=== PATIENT | male | born 1990 | race Caucasian/White ===

== ENCOUNTER 2016-09-27 21:52 | Emergency (ER) | payer OTHER ==
--- NOTE | 2016-09-28 00:43 | DIAGNOSTIC IMAGING REPORT ---
PROCEDURE: CTA THORAX WITH CONTRAST INDICATION: Chest pain. History of deep vein thrombosis. TECHNIQUE: 80 ml of Isovue 370 was injected intravenously and axial images were obtained of the entire thorax with 3D sagittal and coronal MIP reconstructions. (Initial injection was suboptimal due to IV malfunction). Study was performed. COMPARISON: Compared to chest x-ray \ (09/28/2016) FINDINGS: Allowing for suboptimal inspiration and mild respiratory motion, pulmonary vessels are normal and there is no evidence of pulmonary embolus. Lungs are clear. Heart and mediastinum are normal. There is a daqsfshh-iy-sobfx amount of ingested material in the stomach. Thorax is normal. IMPRESSION: 1. Negative CT pulmonary arteriogram. No evidence of pulmonary embolus. 2. Findings discussed with Dr. Joaquín Clark. All CT scans at this facility use dose modulation, iterative reconstruction, and/or weight-based dosing when appropriate to reduce radiation dose to as low as reasonably achievable.
--- NOTE | 2016-09-28 00:43 | DIAGNOSTIC IMAGING REPORT ---
PROCEDURE: CTA THORAX WITH CONTRAST INDICATION: Chest pain. History of deep vein thrombosis. TECHNIQUE: 80 ml of Isovue 370 was injected intravenously and axial images were obtained of the entire thorax with 3D sagittal and coronal MIP reconstructions. (Initial injection was suboptimal due to IV malfunction). Study was performed. COMPARISON: Compared to chest x-ray \ (09/28/2016) FINDINGS: Allowing for suboptimal inspiration and mild respiratory motion, pulmonary vessels are normal and there is no evidence of pulmonary embolus. Lungs are clear. Heart and mediastinum are normal. There is a gjwknqoq-wm-lucko amount of ingested material in the stomach. Thorax is normal. IMPRESSION: 1. Negative CT pulmonary arteriogram. No evidence of pulmonary embolus. 2. Findings discussed with Dr. Joaquín Clark. All CT scans at this facility use dose modulation, iterative reconstruction, and/or weight-based dosing when appropriate to reduce radiation dose to as low as reasonably achievable.
--- NOTE | 2016-09-28 01:03 | ED NURSING NOTES ---
Clinical Report - Nurses [facility] [place] [address] 09/27/2016 21:54 Patient: ARNOLD GAINES TRIAGE Triage time 21:59. Acuity: LEVEL 2. Chief Complaint: CHEST PAIN (anxiety and shortness of breath). Alert. --22:08 Nishant Mcwilliams R.N. 21:59 09/27/16. BP: 126/59. HR: 94. RR: 40 (regular and rapid). O2 saturation: 99% on room air. Temp: 97.3 F (oral). Pain level now: 01/08. --22:08 Nishant Mcwilliams R.N. Weight: 126 kg stated. Height/Length: 71 inches Per Patient. BMI: 38.8. --22:09 Nishant Mcwilliams R.N. Medications Unable to Obtain. --22:00 Nishant Mcwilliams R.N. Allergies No Known Drug Allergy. --22:00 Nishant Mcwilliams R.N. History This started yesterday. PAST MEDICAL HX: Hypertension. SOCIAL HX: Heavy tobacco smoker (cigarette)- 1 pack per day. Occasional alcohol use. History of drug use: marijuana. Is a recovering addict. ( Denies HI/SI). ABUSE ASSESSMENT: No report of abuse. SELF HARM ASSESSMENT: A self harm assessment was performed. The patient answered "no" to the question "Do you have thoughts of harming or killing yourself?" and "Are you here because you tried to hurt yourself?". FALL RISK ASSESSMENT: Fall risk assessment completed. No fall risk identified. NUTRITIONAL RISK ASSESSMENT: The nutritional risk assessment revealed no deficiencies. FUNCTIONAL ASSESSMENT: Functional assessment: no impairments noted. LEARNING NEEDS ASSESSMENT: The learning needs assessment revealed no barriers. SKIN INTEGRITY ASSESSMENT: Skin integrity risk assessment completed. No skin integrity risk identified. --22:08 Nishant Mcwilliams R.N. PROBLEMS: Anxiety Reaction. Hypertension. --22:02 Nishant Mcwilliams R.N. DVT - Deep Venous Thrombosis. Lung Nodule. --22:06 Nishant Mcwilliams R.N. ADDITIONAL SURGERIES: Naloxone Implant. --22:02 Nishant Mcwilliams R.N. Knee Surgery. --22:06 Nishant Mcwilliams R.N. Interventions ID and allergy band on patient. To treatment room. --22:08 Nishant Mcwilliams R.N. PHYSICAL ASSESSMENT Ambulatory to room. GENERAL / NEURO / PSYCH: Alert. Oriented X 4. Appears anxious. HEENT: Mucous membranes are pink. RESPIRATORY: Mild respiratory distress. The patient can speak in full sentences. Breath sounds within normal limits. CVS: Normal sinus rhythm noted. Capillary refill less than 2 seconds. GI / : Abdomen soft. Bowel sounds within normal limits. SKIN: Skin is warm and dry. --22:09 Nishant Mcwilliams R.N. ( NSR on patient monitor). --22:20 Nishant Mcwilliams R.N. ( ER doctor with patient.). --23:27 Nishant Mcwilliams R.N. ( Patient's IV infiltrated in CT scan. The site is currently not swollen, the IV was removed by the roofing technician. The patient has no bleeding or drainage or discoloration at the site of the IV currently. gauze and 4x4 currently applied.). --23:29 Nishant Mcwilliams R.N. 00:09 09/28/16. BP: 135/76. HR: 90. RR: 24. O2 saturation: 99% on room air. --00:09 Nishant Mcwilliams R.N. NURSING PROGRESS NOTES air sampling and monitoring, pulse oximeter and NIBP monitor placed on patient. Patient gowned. Head of bed elevated. Reassurance given. Two patient identifiers checked. Call light placed in reach. Side rails up x 1. Bed placed in lowest position. Brakes of bed on. Patient ready for evaluation- chart flagged. Patient waiting for evaluation. --22:10 Nishant Mcwilliams R.N. ( Patient states having surgery on 09-16-16 to implant a "Naloxone impant"). --22:11 Nishant Mcwilliams R.N. 22:08. EKG was performed by a tech and shown to the ED physician. --22:13 McQuoid, Brenda, ER Tech1 Telemetry strip posted to chart. --22:14 McQuoid, Brenda, ER Tech1 <<STRICKEN ENTRY-- 22:50 09/27/2016 Site #1 started via IV in the right antecubital space with an 20g angiocath, with aseptic technique and good blood return; three attempts. Blood drawn: rainbow set. Labeled in the presence of the patient and sent to the lab. Saline lock flushed with 10 mL saline. --23:00 Nishant Mcwilliams R.N. --END STRIKE>> Correction. --23:02 Nishant Mcwilliams R.N. ( I notified CT that the patient's IV was in place.). --23:00 Nishant Mcwilliams R.N. 22:50 09/27/2016 Site #1 started via IV in the right antecubital space with an 20g angiocath, with aseptic technique and good blood return; three attempts. Blood drawn: rainbow set. Labeled in the presence of the patient and sent to the lab. Saline lock flushed with 10 mL saline (Started by Azar Nunez RN). --23:02 Nishant Mcwilliams R.N. ( Patient requests anti-anxiety medication. I notified the doctor.). --23:04 Nishant Mcwilliams R.N. 23:08 09/27/2016 Ativan (LORazepam) IVP 1 mg given over 1 minute(s) via site #1. Allergies verified, confirmed 5 rights and sedative warning given to the patient. IV patency established. IV site checked: no pain, redness, or swelling. IV flushed thoroughly pre- and post-medication administration. --23:09 Azar Somers R.N. ( Patient in CT). --23:12 Nishant Mcwilliams R.N. 23:16 09/27/2016 Site #1 removed. Catheter intact. Bandage applied (Patient came back from OR - tech informed me that IV site blew during test shot and was unable to complete CT scan). --23:55 Azar Somers R.N. 23:29 09/27/2016 Hydroxyzine (HydrOXYzine HCl) PO Capsules 50 mg given. Allergies verified, confirmed 5 rights and sedative warning given to the patient. --23:29 Nishant Mcwilliams R.N. ( Dr. Yanes is currently attempting to gain IV access by ultrasound.). --23:35 Nishant Mcwilliams R.N. 23:46 09/27/2016 Site #2 started via IV in the right upper arm with an 20g angiocath, with aseptic technique and good blood return; one attempt. Saline lock flushed with 10 mL saline (IV started by Dr. Clark using ultrasound). --23:56 Azar Somers R.N. 00:05 09/28/2016 Toradol IVP 30 mg given over 1 minute(s) via site #2. Allergies verified and confirmed 5 rights. IV patency established. IV site checked: no pain, redness, or swelling. IV flushed thoroughly pre- and post-medication administration. IVP given by RN. --00:07 Nishant Mcwilliams R.N. 00:07 09/28/2016 Started bag #1 1000 mL IV Fluids IV NS (Saline); at 1000 mL/hr over 1 hour(s) via site #2. Allergies verified and confirmed 5 rights. IV patency established. IV site checked: no pain, redness, or swelling. IV flushed thoroughly pre- and post-medication administration. Completed per protocol. --00:07 Nishant Mcwilliams R.N. ( I notified the roofing technician that the patient is ready for CT). --00:08 Nishant Mcwilliams R.N. 00:11. Patient walked to CT with tech. --00:11 McQuoid, Brenda, ER Tech1 ( Patient in CT). --00:18 Nishant Mcwilliams R.N. ( The physician (Joaquín) states that the patient may eat.). --00:36 Nishant Mcwilliams R.N. 01:09 09/28/2016 Toradol IVP 30 mg given over 2 minute(s) via site #2. Allergies verified and confirmed 5 rights. IV patency established. IV site checked: no pain, redness, or swelling. IV flushed thoroughly pre- and post-medication administration. IVP given by RN. --01:14 Nishant Mcwilliams R.N. 01:13 09/28/2016 Site #2 removed upon discharge. Manual pressure and bandage applied. --01:15 Nishant Mcwilliams R.N. 01:13 09/28/2016 IV Fluids IV NS Discontinued: discontinued. Total amount infused: 500 mL. IV patency established. IV site checked: no pain, redness, or swelling. IV flushed thoroughly. --01:15 Nishant Mcwilliams R.N. DISPOSITION / DISCHARGE Departure time: 01:15. Condition at departure: stable. No learning barriers present. Discharge instructions provided and reviewed with the patient and parent. Reviewed warnings. Reviewed medication(s) side effects, precautions, dosing and course information. Prescription(s) given to the patient. Treatments reviewed. Reviewed referrals. Patient and parent verbalized understanding. Written instructions provided in Maori. The patient was discharged home and accompanied by parent. He left the Emergency Department ambulatory and via private vehicle. Parent driving. --01:16 Nishant Mcwilliams R.N. 01:13 09/28/16. BP: 141/83. HR: 93. RR: 20 (regular and unlabored). O2 saturation: 100%. Chin-Steele pain scale: 2/10. --01:16 Nishant Mcwilliams R.N. Locked/Released at 09/28/2016 1:16 by Nishant Mcwilliams R.N.
--- NOTE | 2016-09-28 01:03 | ED NURSING NOTES ---
Clinical Report - Nurses [facility] [place] [address] 09/27/2016 21:54 Patient: ARNOLD GAINES TRIAGE Triage time 21:59. Acuity: LEVEL 2. Chief Complaint: CHEST PAIN (anxiety and shortness of breath). Alert. --22:08 Nishant Mcwilliams R.N. 21:59 09/27/16. BP: 126/59. HR: 94. RR: 40 (regular and rapid). O2 saturation: 99% on room air. Temp: 97.3 F (oral). Pain level now: 01/08. --22:08 Nishant Mcwilliams R.N. Weight: 126 kg stated. Height/Length: 71 inches Per Patient. BMI: 38.8. --22:09 Nishant Mcwilliams R.N. Medications Unable to Obtain. --22:00 Nishant Mcwilliams R.N. Allergies No Known Drug Allergy. --22:00 Nishant Mcwilliams R.N. History This started yesterday. PAST MEDICAL HX: Hypertension. SOCIAL HX: Heavy tobacco smoker (cigarette)- 1 pack per day. Occasional alcohol use. History of drug use: marijuana. Is a recovering addict. ( Denies HI/SI). ABUSE ASSESSMENT: No report of abuse. SELF HARM ASSESSMENT: A self harm assessment was performed. The patient answered "no" to the question "Do you have thoughts of harming or killing yourself?" and "Are you here because you tried to hurt yourself?". FALL RISK ASSESSMENT: Fall risk assessment completed. No fall risk identified. NUTRITIONAL RISK ASSESSMENT: The nutritional risk assessment revealed no deficiencies. FUNCTIONAL ASSESSMENT: Functional assessment: no impairments noted. LEARNING NEEDS ASSESSMENT: The learning needs assessment revealed no barriers. SKIN INTEGRITY ASSESSMENT: Skin integrity risk assessment completed. No skin integrity risk identified. --22:08 Nishant Mcwilliams R.N. PROBLEMS: Anxiety Reaction. Hypertension. --22:02 Nishant Mcwilliams R.N. DVT - Deep Venous Thrombosis. Lung Nodule. --22:06 Nishatn Mcwilliams R.N. ADDITIONAL SURGERIES: Naloxone Implant. --22:02 Nishant Mcwilliams R.N. Knee Surgery. --22:06 Nishant Mcwilliams R.N. Interventions ID and allergy band on patient. To treatment room. --22:08 Nishant Mcwilliams R.N. PHYSICAL ASSESSMENT Ambulatory to room. GENERAL / NEURO / PSYCH: Alert. Oriented X 4. Appears anxious. HEENT: Mucous membranes are pink. RESPIRATORY: Mild respiratory distress. The patient can speak in full sentences. Breath sounds within normal limits. CVS: Normal sinus rhythm noted. Capillary refill less than 2 seconds. GI / : Abdomen soft. Bowel sounds within normal limits. SKIN: Skin is warm and dry. --22:09 Nishant Mcwilliams R.N. ( NSR on color television console monitor). --22:20 Nishant Mcwilliams R.N. ( ER doctor with patient.). --23:27 Nishant Mcwilliams R.N. ( Patient's IV infiltrated in CT scan. The site is currently not swollen, the IV was removed by the technical aid. The patient has no bleeding or drainage or discoloration at the site of the IV currently. gauze and 4x4 currently applied.). --23:29 Nishant Mcwilliams R.N. 00:09 09/28/16. BP: 135/76. HR: 90. RR: 24. O2 saturation: 99% on room air. --00:09 Nishant Mcwilliams R.N. NURSING PROGRESS NOTES surveillance monitor, pulse oximeter and NIBP monitor placed on patient. Patient gowned. Head of bed elevated. Reassurance given. Two patient identifiers checked. Call light placed in reach. Side rails up x 1. Bed placed in lowest position. Brakes of bed on. Patient ready for evaluation- chart flagged. Patient waiting for evaluation. --22:10 Nishant Mcwilliams R.N. ( Patient states having surgery on 09-16-16 to implant a "Naloxone impant"). --22:11 Nishant Mcwilliams R.N. 22:08. EKG was performed by a tech and shown to the ED physician. --22:13 McQuoid, Brenda, ER Tech1 Telemetry strip posted to chart. --22:14 McQuoid, Brenda, ER Tech1 <<STRICKEN ENTRY-- 22:50 09/27/2016 Site #1 started via IV in the right antecubital space with an 20g angiocath, with aseptic technique and good blood return; three attempts. Blood drawn: rainbow set. Labeled in the presence of the patient and sent to the lab. Saline lock flushed with 10 mL saline. --23:00 Nishant Mcwilliams R.N. --END STRIKE>> Correction. --23:02 Nishant Mcwilliams R.N. ( I notified CT that the patient's IV was in place.). --23:00 Nishant Mcwilliams R.N. 22:50 09/27/2016 Site #1 started via IV in the right antecubital space with an 20g angiocath, with aseptic technique and good blood return; three attempts. Blood drawn: rainbow set. Labeled in the presence of the patient and sent to the lab. Saline lock flushed with 10 mL saline (Started by Azar Nunez RN). --23:02 Nishant Mcwilliams R.N. ( Patient requests anti-anxiety medication. I notified the doctor.). --23:04 Nishant Mcwilliams R.N. 23:08 09/27/2016 Ativan (LORazepam) IVP 1 mg given over 1 minute(s) via site #1. Allergies verified, confirmed 5 rights and sedative warning given to the patient. IV patency established. IV site checked: no pain, redness, or swelling. IV flushed thoroughly pre- and post-medication administration. --23:09 Azar Somers R.N. ( Patient in CT). --23:12 Nishant Mcwilliams R.N. 23:16 09/27/2016 Site #1 removed. Catheter intact. Bandage applied (Patient came back from [place] - tech informed me that IV site blew during test shot and was unable to complete CT scan). --23:55 Azar Somers R.N. 23:29 09/27/2016 Hydroxyzine (HydrOXYzine HCl) PO Capsules 50 mg given. Allergies verified, confirmed 5 rights and sedative warning given to the patient. --23:29 Nishant Mcwilliams R.N. ( Dr. Yanes is currently attempting to gain IV access by ultrasound.). --23:35 Nishant Mcwilliams R.N. 23:46 09/27/2016 Site #2 started via IV in the right upper arm with an 20g angiocath, with aseptic technique and good blood return; one attempt. Saline lock flushed with 10 mL saline (IV started by Dr. Clark using ultrasound). --23:56 Azar Somers R.N. 00:05 09/28/2016 Toradol IVP 30 mg given over 1 minute(s) via site #2. Allergies verified and confirmed 5 rights. IV patency established. IV site checked: no pain, redness, or swelling. IV flushed thoroughly pre- and post-medication administration. IVP given by RN. --00:07 Nishant Mcwilliams R.N. 00:07 09/28/2016 Started bag #1 1000 mL IV Fluids IV NS (Saline); at 1000 mL/hr over 1 hour(s) via site #2. Allergies verified and confirmed 5 rights. IV patency established. IV site checked: no pain, redness, or swelling. IV flushed thoroughly pre- and post-medication administration. Completed per protocol. --00:07 Nishant Mcwilliams R.N. ( I notified the technical aid that the patient is ready for CT). --00:08 Nishant Mcwilliams R.N. 00:11. Patient walked to CT with tech. --00:11 McQuoid, Brenda, ER Tech1 ( Patient in CT). --00:18 Nishant Mcwilliams R.N. ( The physician (Joaquín) states that the patient may eat.). --00:36 Nishant Mcwilliams R.N. 01:09 09/28/2016 Toradol IVP 30 mg given over 2 minute(s) via site #2. Allergies verified and confirmed 5 rights. IV patency established. IV site checked: no pain, redness, or swelling. IV flushed thoroughly pre- and post-medication administration. IVP given by RN. --01:14 Nishant Mcwilliams R.N. 01:13 09/28/2016 Site #2 removed upon discharge. Manual pressure and bandage applied. --01:15 Nishant Mcwilliams R.N. 01:13 09/28/2016 IV Fluids IV NS Discontinued: discontinued. Total amount infused: 500 mL. IV patency established. IV site checked: no pain, redness, or swelling. IV flushed thoroughly. --01:15 Nishant Mcwilliams R.N. DISPOSITION / DISCHARGE Departure time: 01:15. Condition at departure: stable. No learning barriers present. Discharge instructions provided and reviewed with the patient and parent. Reviewed warnings. Reviewed medication(s) side effects, precautions, dosing and course information. Prescription(s) given to the patient. Treatments reviewed. Reviewed referrals. Patient and parent verbalized understanding. Written instructions provided in Amharic. The patient was discharged home and accompanied by parent. He left the Emergency Department ambulatory and via private vehicle. Parent driving. --01:16 Nishant Mcwilliams R.N. 01:13 09/28/16. BP: 141/83. HR: 93. RR: 20 (regular and unlabored). O2 saturation: 100%. Chin-Steele pain scale: 2/10. --01:16 Nishant Mcwilliams R.N. Locked/Released at 09/28/2016 1:16 by Nishant Mcwilliams R.N.
--- NOTE | 2016-09-28 01:03 | ED ORDER SUMMARY ---
..... Patient: ARNOLD GAINES OrderSheet [facility] VisitID: [id number] [place] [address] 25y, M Registration Date/Time: 09/27/2016 ORDER SHEET Weight: 126.0 kg (stated) Allergies: No Known Drug Allergy GENERAL ORDERS: EKG - ER Stat (22:15 09/27/2016 AMcQuoid ER Tech1 per protocol) (22:15 AMcQuoid ER Tech1) Blast Furnace Supervisor (Continuous) (CP) (22:09/27/2016 Isaias Wright) (22:58 DDavis R.N.) CTA Thorax w Cont (No) (N/A) Urgent (:09/27/2016 Isaias Wright) (Ack 22:37 CHagerty ER Automatic Lathe Operator) (0:21 RFay) CBC w Diff Urgent (:09/27/2016 Isaias Wright) (Ack 22:37 CHagerty ER Automatic Lathe Operator) (22:59 DDavis R.N.) CMP Urgent (22:09/27/2016 Isaias Wright) (Ack 22:37 Nimaerty ER Automatic Lathe Operator) (22:59 DDavis R.N.) Troponin-I Urgent (22:09/27/2016 Isaias Wright) (Ack 22:37 CHagerty ER Automatic Lathe Operator) (22:59 DDavis R.N.) PT with INR Urgent (22:09/27/2016 Isaias Wright) (Ack 22:37 CHagerty ER Automatic Lathe Operator) (22:59 DDavis R.N.) Pulse oximeter (22:09/27/2016 Isaias Wright) (22:58 DDavis R.N.) MEDICATION ORDERS: HydrOXYzine PO 50 mg (NOW) (:09/27/2016 Isaias Wright) (23:29 DDavis R.N.) IV FLUIDS: IV NS : initial bolus 1000 mL (1000 mL/hr), then none - for X1 (NOW) (22:09/27/2016 Isaias Wright) (Ack 23:23 DDavis R.N.) (0:07 DDavis R.N.) Toradol IV 30 mg (NOW) (22:29 09/27/2016 Isaias Wright) (Ack 23:23 DDavis R.N.) (0:07 DDavis R.N.) Ativan IV 1 mg (HIGH ALERT MEDICATION, NOW) (23:05 09/27/2016 Isaias Wright) (23:09 JQuivey R.N.) Toradol IV 30 mg (NOW) (01:02 09/28/2016 Isaias Wright) (Ack 1:02 DDavis R.N.) (1:14 DDavis R.N.) ORDER SHEET NOTES: [Electronically signed by Nishant Mcwilliams R.N. (01:16 09/28/2016)] [Electronically signed by Joaquín Clark Dr. (07:12 09/28/2016)] [Electronically locked/signed by Nishant Mcwilliams R.N. (01:16 09/28/2016)]
--- NOTE | 2016-09-28 01:03 | ED ORDER SUMMARY ---
..... Patient: ARNOLD GAINES OrderSheet [facility] VisitID: [id number] [place] [address] 25y, M Registration Date/Time: 09/27/2016 ORDER SHEET Weight: 126.0 kg (stated) Allergies: No Known Drug Allergy GENERAL ORDERS: EKG - ER Stat (22:15 09/27/2016 AMcQuoid ER Tech1 per protocol) (22:15 AMcQuoid ER Tech1) Director Of Dance (Continuous) (CP) (22:09/27/2016 Isaias Wright) (22:58 DDavis R.N.) CTA Thorax w Cont (No) (N/A) Urgent (:09/27/2016 Isaias Wright) (Ack 22:37 CHagerty ER Mergers And Acquisitions Consultant) (0:21 RFay) CBC w Diff Urgent (:09/27/2016 Isaias Wright) (Ack 22:37 CHagerty ER Mergers And Acquisitions Consultant) (22:59 DDavis R.N.) CMP Urgent (22:09/27/2016 Isaias Wright) (Ack 22:37 Nimaerty ER Mergers And Acquisitions Consultant) (22:59 DDavis R.N.) Troponin-I Urgent (22:09/27/2016 Isaias Wright) (Ack 22:37 CHagerty ER Mergers And Acquisitions Consultant) (22:59 DDavis R.N.) PT with INR Urgent (22:09/27/2016 Isaias Wright) (Ack 22:37 CHagerty ER Mergers And Acquisitions Consultant) (22:59 DDavis R.N.) Pulse oximeter (22:09/27/2016 Isaias Wright) (22:58 DDavis R.N.) MEDICATION ORDERS: HydrOXYzine PO 50 mg (NOW) (:09/27/2016 Isaias Wright) (23:29 DDavis R.N.) IV FLUIDS: IV NS : initial bolus 1000 mL (1000 mL/hr), then none - for X1 (NOW) (22:09/27/2016 Isaias Wright) (Ack 23:23 DDavis R.N.) (0:07 DDavis R.N.) Toradol IV 30 mg (NOW) (22:29 09/27/2016 Isaias Wright) (Ack 23:23 DDavis R.N.) (0:07 DDavis R.N.) Ativan IV 1 mg (HIGH ALERT MEDICATION, NOW) (23:05 09/27/2016 Isaias Wright) (23:09 JQuivey R.N.) Toradol IV 30 mg (NOW) (01:02 09/28/2016 Isaias Wright) (Ack 1:02 DDavis R.N.) (1:14 DDavis R.N.) ORDER SHEET NOTES: [Electronically signed by Nishant Mcwilliams R.N. (01:16 09/28/2016)] [Electronically signed by Joaquín Clark Dr. (07:12 09/28/2016)] [Electronically locked/signed by Nishant Mcwilliams R.N. (01:16 09/28/2016)]
--- NOTE | 2016-09-28 01:03 | ED CLINICAL REPORT ---
Clinical Report - Physicians/Mid Levels [facility] [address] [place] [address] 09/27/2016 21:54 Patient: ARNOLD GAINES Time Seen: 2215. Arrived- By private vehicle. Historian- patient. HISTORY OF PRESENT ILLNESS Chief Complaint: CHEST PAIN. It is described as pressure and it is described as located in the right chest area. No radiation. This started yesterday and is still present (unchanged). It was abrupt in onset and has been constant but is not gone now. Onset during rest. At its maximum, severity described as moderate. When seen in the E.D., severity described as moderate. Modifying factors- (reports it is non-exertional). Not worsened by anything. Not relieved by anything. No nausea, vomiting, difficulty breathing or diaphoresis. No additional chest pain. Similar symptoms previously: None. Recent medical care: The patient was seen recently by a health care provider (implanted "narcan device"). REVIEW OF SYSTEMS No fever or skin rash. All systems otherwise negative, except as recorded above. PAST HISTORY See nurses notes. Risk factors for DVT/pulmonary embolism- prior history of DVT. SOCIAL HISTORY Smoker- current status unknown. 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 No alcohol use. No recent travel. Is a local resident. FAMILY HISTORY Negative. ADDITIONAL NOTES The nursing notes have been reviewed. PHYSICAL EXAM Vital Signs: 09/27/2016 21:59 BP: 126/59. HR: 94. RR: 40. O2 saturation: 99%. Temp: 97.3 F. Pain level now: 8/10. Blood pressure normal. Oxygen saturation normal. Appearance: Alert. Oriented X3. No acute distress. Eyes: Pupils equal, round and reactive to light. Eyes normal inspection. ENT: Ears normal. Nose normal. Pharynx normal. Neck: Normal inspection. Neck supple. CVS: Normal heart rate and rhythm. Heart sounds normal. Pulses normal. Respiratory: No respiratory distress. Breath sounds normal. Chest nontender. Abdomen: Soft and nontender. Bowel sounds normal. No organomegaly. No mass. (ecchymosis to the left lower anterior abdomen consistent with recent surgery). Skin: Skin warm and dry. Normal skin color. No rash. Normal skin turgor. Extremities: Extremities exhibit normal ROM. No lower extremity edema. Neuro: Oriented X 3. No motor deficit. No sensory deficit. LABS, X-RAYS, AND EKG EKG: No acute process. No acute ischemia. Normal EKG. Normal sinus rhythm. Rate: 92. Normal P waves. Normal SIGRID. Normal QRS complex. Normal axis. Normal ST and T waves, QT and QTc. The study has been interpreted contemporaneously. The study has been independently viewed by me. The EKG appears to be a good tracing. Chest CT: (PROCEDURE: CTA THORAX WITH CONTRAST INDICATION: Chest pain. History of deep vein thrombosis. TECHNIQUE: 80 ml of Isovue 370 was injected intravenously and axial images were obtained of the entire thorax with 3D sagittal and coronal MIP reconstructions. (Initial injection was suboptimal due to IV malfunction). Study was performed. COMPARISON: Compared to chest x-ray \\ (09/28/2016) FINDINGS: Allowing for suboptimal inspiration and mild respiratory motion, pulmonary vessels are normal and there is no evidence of pulmonary embolus. Lungs are clear. Heart and mediastinum are normal. There is a [id number] amount of ingested material in the stomach. Thorax is normal. IMPRESSION: 1. Negative CT pulmonary arteriogram. No evidence of pulmonary embolus.). Chest CT performed with contrast. The study was independently viewed by me and interpreted by the radiologist. The study was discussed with the radiologist (via phone and pacs). Laboratory Tests: CBC w Diff: (IVAN: 09/27/2016 22:35) ( MsgRcvd 09/27/2016 22:55) Final results Test Result Flag Units (Reference) WHITE BLOOD COUNT 11.5 K/uL (4.5-11.5) RED BLOOD COUNT 5.03 M/uL (4.50-5.90) HEMOGLOBIN 13.8 gm/dL (13.5-17.5) HEMATOCRIT 41.9 % (41.0-53.0) MEAN CELL VOLUME 83 fL (80-100) MEAN CORPUSCULAR HGB 28 pg (26-34) MEAN CORPUSCULAR HGB CONC 33 g/dL (31-37) RED CELL DISTRIBUTION WIDTH 16.6 H % (11.6-14.8) PLATELET COUNT 283 K/uL (150-400) LYMPH % 44.4 H % (25-40) MONO % 11.6 % (3-14) GRANULOCYTE % 44.0 PT with INR: (IVAN: 09/27/2016 22:35) ( MsgRcvd 09/27/2016 23:05) Final results Test Result Flag Units (Reference) INR 0.9 (0.8-1.2) Low Intensity Therapy: INR 1.5-2.0 PT range 18.5-23.1Mod.Intensity Therapy: INR 2.0-3.0 PT range 23.1-31.5High Intensity Therapy: INR 2.5-3.5 PT range 27.4-35.5High Intensity Therapy 2: INR 3.0-4.0 PT range 31.5-39.3 CMP: (IVAN: 09/27/2016 22:35) ( MsgRcvd 09/27/2016 23:09) Final results Test Result Flag Units (Reference) GLUCOSE 115 H mg/dL (70-110) BUN 13 mg/dL (7-18) CREATININE 0.9 mg/dL (0.6-1.3) Estimated GFR >60 mL/min Estimated GFR- >60 mL/min Note: Persistent reduction over 3 months in eGFR<60 mL/min/1.73 m2 defines CKD. Patients with eGFR values>=60 mL/min/1.73 m2 may also have CKD if evidence ofpersistent proteinuria. Additional information may be foundat www.kidney.org. SODIUM 147 H mmol/L (136-145) POTASSIUM 4.0 mmol/L (3.5-5.1) CHLORIDE 109 H mmol/L (98-107) CARBON DIOXIDE 25 mmol/L (21-32) CALCIUM 9.5 mg/dL (8.5-10.1) TOTAL PROTEIN 8.0 g/dL (6.4-8.2) ALBUMIN 3.7 g/dL (3.3-5.0) BILIRUBIN, TOTAL 0.1 mg/dL (0.0-1.0) ALKALINE PHOSPHATASE 118 H U/L (46-116) AST (SGOT) 17 U/L (15-37) ALT (SGPT) 56 U/L (12-78) TROPONIN I <0.05 L ng/mL (0.00-1.5) TROPONIN REFERENCE RANGE:<0.1 NEGATIVE0.1-1.5 INDETERMINANT>1.5 POSITIVE . PROGRESS AND PROCEDURES Course of Care: the patient is a pleasant 25-year-old male with past medical history significant for substance abuse presented for evaluation of chest pain. At this time differential diagnosis includes pulmonary embolism with patient having a history of DVT as well as acute myocardial infarction, pneumonia, pneumothorax. Had long discussion with the patient and mother in regards to patient's presentation here in the emergency department had been recently evaluated for chest pain on the of this month. because of the radiation exposure risk, the patient in the mother were concerned about the CT scan however expressed my concern for his risk of pulmonary embolism given the history of DVT. They're currently agreeable to the treatment plan. Medications have been ordered and workup from [facility] has been requested from the patient's last visit there. The patient's workup was noted for the findings above. Laboratory studies are unremarkable. Troponin is negative. EKG is unremarkable. CT scan of the patient's chest did not show any signs of acute pulmonary embolism. Because of the patient's negative workup. Emergency department, do not feel patient needs to be admitted to the hospital require further emergency department workup/evaluation. Pain is significant improved while here in the emergency department. Patient continues to be nontoxic. Repeat examination is otherwise benign. Discussed with the patient is workup here in the emergency department including diagnosis, home care, follow-up, and return precautions. All questions have been answered. The patient expressed understanding of these instructions and was agreeable to them. Encouraged patient to continue with the detox process and Praised him for his efforts in doing so. The patient that he'll be long and hard process however the records at the end of the road are significant. Disposition: Discharged. Condition: good. CLINICAL IMPRESSION 09/28/2016 00:09 BP: 135/76. HR: 90. RR: 24. O2 saturation: 99%. 09/27/2016 21:59 BP: 126/59. HR: 94. RR: 40. O2 saturation: 99%. Temp: 97.3 F. Pain level now: 01/08. Blood pressure normal. Oxygen saturation normal. Atypical chest pain .12 lead EKG performed. (acute bilateral anterior). INSTRUCTIONS Warnings: GENERAL WARNINGS: Return or contact your physician immediately if your condition worsens or changes unexpectedly, if not improving as expected, or if other problems arise. SPECIFICALLY, return if you develop chest, neck, jaw, shoulder, arm, or back pain, difficulty breathing, a fluttering sensation in your chest, lightheadedness, fainting, excessive fatigue, or sudden sweating. Your Current Medications: CONTINUE TAKING THE FOLLOWING MEDICATIONS: Unable to Obtain*. Prescription Medications: Motrin 600 mg tablets: take 1 tablet orally every 6 hours as needed for pain, stiffness or swelling. Dispense thirty (30). No refill. Substitution is permissible. (take with food) Follow-up: Return to the emergency department as needed. Follow up with your doctor in three days. Reason for referral: recheck today's concerns. Summary of care provided to patient and family via paper. Screening today revealed the patient's blood pressure to be in the normal range. The patient should follow up with a primary care provider for blood pressure management. Understanding of the discharge instructions verbalized by patient. Discharge instructions reviewed (mother). (Electronically signed by Joaquín Clark Dr. 09/28/2016 7:12)
--- NOTE | 2016-09-28 07:12 | ED MAR SUMMARY ---
..... Medication Administration Record [facility] [address] [place] [address] Patient: ARNOLD GAINES Visit ID: [id number] 25y, M Weight: 126.0 kg Height/Length: 71 in BMI: 38.8 ALLERGIES: No Known Drug Allergy Given 23:08 09/27/2016 Azar Somers R.N. Medication Administered: ATIVAN [IVP] (LORAZEPAM), Dose: 1 mg IVP over 1 minute(s), Site: #1 right AC. Medication Ordered: Ativan IV 1 mg (HIGH ALERT MEDICATION, NOW). Given 23:09/27/2016 Nishant Mcwilliams R.N. Medication Administered: HYDROXYZINE [PO] (HYDROXYZINE HCL), Dose: 50 mg Capsules PO. Medication Ordered: HydrOXYzine PO 50 mg (NOW). Given 00:05 09/28/2016 Nishant Mcwilliams R.N. Medication Administered: TORADOL [IVP], Dose: 30 mg IVP over 1 minute(s), Site: #2 right upper arm. Medication Ordered: Toradol IV 30 mg (NOW). Start 00:07 09/28/2016 Nishant Mcwliliams R.N., Stop 01:13 09/28/2016 Nishant Mcwilliams R.N. Medication Administered: IV NS (SALINE), Dose: IV Fluids over 1 hour(s), Rate: 1000 mL/hr, Dispensed: 1000 mL bag, Site: #2 right upper arm. Medication Ordered: IV NS : initial bolus 1000 mL (1000 mL/hr), then none - for X1 (NOW). Given 01:09 09/28/2016 Nishant Mcwilliams R.N. Medication Administered: TORADOL [IVP], Dose: 30 mg IVP over 2 minute(s), Site: #2 right upper arm. Medication Ordered: Toradol IV 30 mg (NOW).
--- NOTE | 2016-09-28 07:12 | ED DISCHARGE INSTRUCTIONS ---
Patient: ARNOLD GAINES General Instructions [facility] VisitID: [id number] [place] [address] 25y, M Registration Date/Time: 09/27/2016 09/28/2016 00:09 BP: 135/76. HR: 90. RR: 24. O2 saturation: 99%. 09/27/2016 21:59 BP: 126/59. HR: 94. RR: 40. O2 saturation: 99%. Temp: 97.3 F. Pain level now: 810. Blood pressure normal. Oxygen saturation normal. Atypical chest pain .12 lead EKG performed. (acute bilateral anterior). INSTRUCTIONS Warnings: GENERAL WARNINGS: Return or contact your physician immediately if your condition worsens or changes unexpectedly, if not improving as expected, or if other problems arise. SPECIFICALLY, return if you develop chest, neck, jaw, shoulder, arm, or back pain, difficulty breathing, a fluttering sensation in your chest, lightheadedness, fainting, excessive fatigue, or sudden sweating. Your Current Medications: CONTINUE TAKING THE FOLLOWING MEDICATIONS: Unable to Obtain*. Prescription Medications: Motrin 600 mg tablets: take 1 tablet orally every 6 hours as needed for pain, stiffness or swelling. Dispense thirty (30). No refill. Substitution is permissible. (take with food) Follow-up: Return to the emergency department as needed. Follow up with your doctor in three days. Reason for referral: recheck today's concerns. Summary of care provided to patient and family via paper. Screening today revealed the patient's blood pressure to be in the normal range. The patient should follow up with a primary care provider for blood pressure management. Understanding of the discharge instructions verbalized by patient. Discharge instructions reviewed (mother). ADDITIONAL INFORMATION Chest Pain, Uncertain Cause Chest pain can happen for a number of reasons. Sometimes the cause can not be determined. If yourcondition does not seem serious, and your pain does not appear to be coming from your heart, your doctor may recommend watching it closely. Sometimes the signs of a serious problem take more time to appear. Therefore, watch for the warning signs listed below. Home care After your visit, follow these recommendations: Rest today and avoid strenuous activity. Take any prescribed medicine as directed. Follow-up care Follow up with your doctor or this facility as instructed or if you do not start to feel better within 24 hours. Call 911 Get immediate medical attention if any of the following occur: A change in the type of pain: if it feels different, becomes more severe, lasts longer, or begins to spread into your shoulder, arm, neck, jaw or back Shortness of breath or increased pain with breathing Weakness, dizziness, or fainting Rapid heart beat Get prompt medical attention Call your doctor right away if any of the following occur: Cough with dark colored sputum (phlegm) or blood Fever of 100.4F(38C) or higher, or as directed by your health care provider Swelling, pain or redness in one leg Ibuprofen Oral tablet What is this medicine? IBUPROFEN (eye BYOO proe fen) is a non-steroidal anti-inflammatory drug (NSAID). It is used for dental pain, fever, headaches or migraines, osteoarthritis, rheumatoid arthritis, or painful monthly periods. It can also relieve minor aches and pains caused by a cold, flu, or sore throat. How should I use this medicine? Take this medicine by mouth with a glass of water. Follow the directions on the prescription label. Take this medicine with food if your stomach gets upset. Try to not lie down for at least 10 minutes after you take the medicine. Take your medicine at regular intervals. Do not take your medicine more often than directed. A special MedGuide will be given to you by the pharmacist with each prescription and refill. Be sure to read this information carefully each time. Talk to your litigation docket manager regarding the use of this medicine in children. Special care may be needed. What side effects may I notice from receiving this medicine? Side effects that you should report to your doctor or health healthcare sales representative as soon as possible: allergic reactions like skin rash, itching or hives, swelling of the face, lips, or tongue black or bloody stools, blood in the urine or in vomit breathing problems changes in vision chest pain general ill feeling or flu-like symptoms nausea or vomiting redness, blistering, peeling or loosening of the skin, including inside the mouth slurred speech or weakness on one side of the body stomach pain unexplained weight gain or swelling unusually weak or tired yellowing of eyes or skin Side effects that usually do not require medical attention (report to your doctor or health healthcare sales representative if they continue or are bothersome): constipation or diarrhea dizziness gas or heartburn stomach upset What may interact with this medicine? Do not take this medicine with any of the following medications: cidofovir ketorolac methotrexate pemetrexed This medicine may also interact with the following medications: alcohol aspirin diuretics lithium other drugs for inflammation like prednisone warfarin What if I miss a dose? If you miss a dose, take it as soon as you can. If it is almost time for your next dose, take only that dose. Do not take double or extra doses. Where should I keep my medicine? Keep out of the reach of children. Store at room temperature between 15 and 30 degrees C (59 and 86 degrees F). Keep container tightly closed. Throw away any unused medicine after the expiration date. What should I tell my health care provider before I take this medicine? They need to know if you have any of these conditions: asthma cigarette smoker drink more than 3 alcohol containing drinks a day heart disease or circulation problems such as heart failure or leg edema (fluid retention) high blood pressure kidney disease liver disease stomach bleeding or ulcers an unusual or allergic reaction to ibuprofen, aspirin, other NSAIDS, other medicines, foods, dyes, or preservatives or trying to get breast-feeding What should I watch for while using this medicine? Tell your doctor or healthcare professional if your symptoms do not start to get better or if they get worse. This medicine does not prevent heart attack or stroke. In fact, this medicine may increase the chance of a heart attack or stroke. The chance may increase with longer use of this medicine and in people who have heart disease. If you take aspirin to prevent heart attack or stroke, talk with your doctor or health healthcare sales representative. Do not take other medicines that contain aspirin, ibuprofen, or naproxen with this medicine. Side effects such as stomach upset, nausea, or ulcers may be more likely to occur. Many medicines available without a prescription should not be taken with this medicine. This medicine can cause ulcers and bleeding in the stomach and intestines at any time during treatment. Ulcers and bleeding can happen without warning symptoms and can cause . To reduce your risk, do not smoke cigarettes or drink alcohol while you are taking this medicine. You may get drowsy or dizzy. Do not drive, use machinery, or do anything that needs mental alertness until you know how this medicine affects you. Do not stand or sit up quickly, especially if you are an older patient. This reduces the risk of dizzy or fainting spells. This medicine can cause you to bleed more easily. Try to avoid damage to your teeth and gums when you brush or floss your teeth. You have been given the following additional information: Chest Pain, Uncertain Cause Ibuprofen Oral tablet (Electronically signed by Joaquín Clark Dr. 09/28/2016 7:12)
--- NOTE | 2016-09-28 07:12 | ED MAR SUMMARY ---
..... Medication Administration Record [facility] [address] [place] [address] Patient: ARNOLD GAINES Visit ID: [id number] 25y, M Weight: 126.0 kg Height/Length: 71 in BMI: 38.8 ALLERGIES: No Known Drug Allergy Given 23:08 09/27/2016 Azar Somers R.N. Medication Administered: ATIVAN [IVP] (LORAZEPAM), Dose: 1 mg IVP over 1 minute(s), Site: #1 right AC. Medication Ordered: Ativan IV 1 mg (HIGH ALERT MEDICATION, NOW). Given 23:09/27/2016 Nishant Mcwilliams R.N. Medication Administered: HYDROXYZINE [PO] (HYDROXYZINE HCL), Dose: 50 mg Capsules PO. Medication Ordered: HydrOXYzine PO 50 mg (NOW). Given 00:05 09/28/2016 Nishant Mcwilliams R.N. Medication Administered: TORADOL [IVP], Dose: 30 mg IVP over 1 minute(s), Site: #2 right upper arm. Medication Ordered: Toradol IV 30 mg (NOW). Start 00:07 09/28/2016 Nishant Mcwilliams R.N., Stop 01:13 09/28/2016 Nishant Mcwilliams R.N. Medication Administered: IV NS (SALINE), Dose: IV Fluids over 1 hour(s), Rate: 1000 mL/hr, Dispensed: 1000 mL bag, Site: #2 right upper arm. Medication Ordered: IV NS : initial bolus 1000 mL (1000 mL/hr), then none - for X1 (NOW). Given 01:09 09/28/2016 Nishant Mcwilliams R.N. Medication Administered: TORADOL [IVP], Dose: 30 mg IVP over 2 minute(s), Site: #2 right upper arm. Medication Ordered: Toradol IV 30 mg (NOW).
--- NOTE | 2016-09-28 07:12 | ED MED RECONCILIATION SUMMARY ---
Patient: ARNOLD GAINES Medication Reconciliation Report [facility] VisitID: [id number] [address] [place] [address] 25y, M Registration Date/Time: 09/27/2016 Weight: 126.0 kg Height/Length: 71 in. BMI: 38.8 ALLERGIES: No Known Drug Allergy The patient's Home Medications are listed below: Unable to obtain. The source(s) of the original Home Medication information: Not obtained. The following Medications were given to the patient in the Emergency Department: Ativan [IVP] IVP 1 mg, administered: 09/27/2016 11:08:00 PM Hydroxyzine [PO] PO 50 mg, administered: 09/27/2016 11:29:00 PM Toradol [IVP] IVP 30 mg, administered: 09/28/2016 12:05:00 AM IV NS IV Fluids bolus 0, then 1000 mL/hr, administered: 09/28/2016 12:07:00 AM Toradol [IVP] IVP 30 mg, administered: 09/28/2016 1:09:00 AM The following Medications were prescribed to the patient: Motrin 600 mg tablets: take 1 tablet orally every 6 hours as needed for pain, stiffness or swelling. Dispense thirty (30). No refill. Substitution is permissible.(take with food) -- Joaquín Clark Dr.
--- NOTE | 2016-09-28 07:12 | ED MED RECONCILIATION SUMMARY ---
Patient: ARNOLD GAINES Medication Reconciliation Report [facility] VisitID: [id number] [address] [place] [address] 25y, M Registration Date/Time: 09/27/2016 Weight: 126.0 kg Height/Length: 71 in. BMI: 38.8 ALLERGIES: No Known Drug Allergy The patient's Home Medications are listed below: Unable to obtain. The source(s) of the original Home Medication information: Not obtained. The following Medications were given to the patient in the Emergency Department: Ativan [IVP] IVP 1 mg, administered: 09/27/2016 11:08:00 PM Hydroxyzine [PO] PO 50 mg, administered: 09/27/2016 11:29:00 PM Toradol [IVP] IVP 30 mg, administered: 09/28/2016 12:05:00 AM IV NS IV Fluids bolus 0, then 1000 mL/hr, administered: 09/28/2016 12:07:00 AM Toradol [IVP] IVP 30 mg, administered: 09/28/2016 1:09:00 AM The following Medications were prescribed to the patient: Motrin 600 mg tablets: take 1 tablet orally every 6 hours as needed for pain, stiffness or swelling. Dispense thirty (30). No refill. Substitution is permissible.(take with food) -- Joaquín Clark Dr.
== END 2016-09-28 01:16 | disposition home or self-care (01) ==
LOC: ED SRH 21:52
DX: R07.89 Other chest pain (principal)
CPT/HCPCS: 90100; 90616; 94060; 95059